=== PATIENT | male | born 1955 | race Caucasian/White ===

== ENCOUNTER 2023-12-17 12:01 | Emergency (ER) | payer MEDICARE, MEDICAID ==
[~2023-12-17] VITALS: Ht 175.3 cm; Wt 78.0 kg
[2023-12-17 12:15] VITALS: O2SAT 98
[2023-12-17 12:51] LABS: BASOPHILS % 0.5 % (0.0-2.0); EOSINOPHILS % 3.6 % (0.0-5.0); HEMOGLOBIN. 14.3 g/dL (14.0-18.0); LYMPHOCYTES % 28.4 % (20.0-50.0); MEAN CORPUSCULAR HEMOGLOBIN 29.4 pg (28.0-32.0); MEAN CORPUSCULAR HGB CONC 34.1 g/dL (31.0-37.0); MEAN CORPUSCULAR VOLUME 86.1 fL (80.0-94.0); MEAN PLATELET VOLUME 7.3 fl (7.4-10.4); NEUTROPHILS % 61.5 % (40.0-76.0); PLATELET 222 x1000/uL (130-400); RED BLOOD CELL COUNT 4.87 mill/uL (4.7-6.1); WHITE BLOOD COUNT 6.5 x1000/uL (4.5-11.0)
[2023-12-17 13:01] LABS: CHLORIDE 106 mEq/L (98-107); POTASSIUM 4.6 mEq/L (3.5-5.1); SODIUM 138 mEq/L (136-145)
[2023-12-17 13:02] LABS: CALCIUM 9.6 mg/dL (8.7-10.4); CARBON DIOXIDE 26 mEq/L (21-32)
[2023-12-17 13:07] LABS: CREATININE 0.9 mg/dL (0.6-1.3); GLUCOSE 88 mg/dL (70-105); UREA NITROGEN BLOOD 18 mg/dL (9-23)
[2023-12-17] MEDS ORDERED: ACETAMINOPHEN 500MG TABLET PO ONE (13:30)
[2023-12-17] MEDS ORDERED: ACET-2708 MT (15:13)
[2023-12-17] MEDS: ACETAMINOPHEN 500MG TABLET PO NR (15:16)
[2023-12-17 15:23] VITALS: BP 175/101; PULSE 77; RESP 16; TEMP 98.1
== END 2023-12-17 15:37 | disposition home or self-care (01) ==
LOC: ER 12:01
DX: M79.672 Pain in left foot (principal); E11.9 Type 2 diabetes mellitus without complications; E78.00 Pure hypercholesterolemia, unspecified; I10 Essential (primary) hypertension; M10.9 Gout, unspecified; Z98.890 Other specified postprocedural states
CPT/HCPCS: 36415; 73630; 80048; 85025; 93971; 99284